=== PATIENT | female | born 1950 | race African-American/Black ===

== ENCOUNTER 2016-06-02 20:46 | Emergency (ER) | payer OTHER ==
--- NOTE | 2016-06-02 20:47 | PDOC ---
[id number] 65 year old female with no significant medical hx who is presenting to the ED with a fish bone caught in her throat. Patient reports she was eating cod when she felt a bone lodge in her throat. The patient states she' s eaten peanut butter on bread and marshmellows as an attempt to dislodge it but was unsuccessful. Patient complains of a sharp sensation that she experiences when she swallows. She is not experiencing any airway obstruction. <Abby Damon - Last Filed: 06/02/16 21:00> <Vinnie Toscano - Last Filed: 06/03/16 06:01> - General Chief Complaint: Pain, Acute Stated Complaint: FISH BONE STUCK IN THROAT Time Seen by Provider: 06/02/16 20:47 Past History <Abby Damon - Last Filed: 06/02/16 21:00> - Past Medical History Anemia: No Asthma: No Cancer: No Cardiac Disorders: No CVA: No COPD: No CHF: No Dementia: No Diabetes: No GI Disorders: No Disorders: No HTN: No Hypercholesterolemia: No Liver Disease: No Seizures: No Thyroid Disease: No - Surgical History Abdominal Surgery: Yes (COLON RESECTION FOR BLOCKAGE OVER 10 YEARS AGO) Appendectomy: No Cardiac Surgery: No Cholecystectomy: No Lung Surgery: No Neurologic Surgery: No Orthopedic Surgery: Yes (KNEE ARTHROSCOPY) - Psycho/Social/Smoking Cessation Hx Smoking History: Never smoked Have you smoked in the past 12 months: No Hx Alcohol Use: Yes (OCCASIONALLY) Substance Use Type: Alcohol Hx Substance Use Treatment: No <Vinnie Toscano - Last Filed: 06/03/16 06:01> - Past Medical History Allergies/Adverse Reactions: Allergies Allergy/AdvReac Type Severity Reaction Status Date / Time [place] And Derivatives Allergy Severe Rash Verified 06/02/16 20:47 shellfish derived Allergy Severe Swelling Verified 06/02/16 20:47 soy Allergy Severe Swelling Verified 06/02/16 20:47 Sulfa (Sulfonamide Allergy Unknown Verified 06/02/16 20:47 Antibiotics) iodine Allergy Verified 06/02/16 20:47 NASAL STEROIDS Allergy Severe SWELLING Uncoded 06/15/15 14:09 IN AFFECTED NARE Home Medications: Ambulatory Orders Alendronate Sodium/Vitamin D3 [Fosamax Plus D 70 mg-2,800 Iu Vit D] 1 tab PO Q7D 06/15/15 Citalopram Hydrobromide [Celexa -] 10 mg PO DAILY 06/15/15 Atorvastatin Ca [Lipitor] 10 mg PO 06/02/16 Review of Systems - Review of Systems Comments:: 06/02/16 21:03 CONSTITUTIONAL: Absent: fever, chills, diaphoresis, generalized weakness, malaise, loss of appetite HEENT: Present: fish bone caught in throat, sharp sensation with swallowing Absent: rhinorrhea, nasal congestion, throat swelling, mouth swelling, ear pain , eye pain, visual changes CARDIOVASCULAR: Absent: chest pain, syncope, palpitations, irregular heart rate, lightheadedness , peripheral edema RESPIRATORY: Absent: cough, shortness of breath, dyspnea with exertion, orthopnea, wheezing, stridor, hemoptysis GASTROINTESTINAL: Absent: abdominal pain, abdominal distension, nausea, vomiting, diarrhea, constipation, melena, hematochezia GENITOURINARY: Absent: dysuria, frequency, urgency, hesitancy, hematuria, flank pain, genital pain MUSCULOSKELETAL: Absent: myalgia, arthralgia, joint swelling SKIN: Absent: rash, itching, pallor HEMATOLOGIC/IMMUNOLOGIC: Absent: easy bleeding, easy bruising, lymphadenopathy, frequent infections ENDOCRINE: Absent: unexplained weight gain, unexplained weight loss, heat intolerance, cold intolerance NEUROLOGIC: Absent: headache, focal weakness or paresthesia, dizziness, unsteady gait, seizure, mental status changes, bladder or bowel incontinence. PSYCHIATRIC: Absent: anxiety, depression, suicidal or homicidal ideation, hallucinations <Marisol,Abby - Last Filed: 06/02/16 21:00> *Physical Exam - Vital Signs Last Vital Signs Temp Pulse Resp BP Pulse Ox 97.6 F 78 16 127/83 97 06/02/16 20:56 06/02/16 20:56 06/02/16 20:56 06/02/16 20:56 06/02/16 20:56 - Physical Exam Comments: 06/02/16 21:03 GENERAL: Well developed, well nourished. Awake and alert. No acute distress. HEENT: Normocephalic, atraumatic. PERRLA, EOMI. No conjunctival pallor. Sclera are non- icteric. Moist mucous membranes. Oropharynx is clear. NECK: Supple. Full ROM. No JVD. Carotid pulses 2+ and symmetric, without bruits. No thyromegaly. No lymphadenopathy. CARDIOVASCULAR: Regular rate and rhythm. No murmurs, rubs, or gallops. Distal pulses are 2+ and symmetric. PULMONARY: No evidence of respiratory distress. Lungs clear to auscultation bilaterally. No wheezing, rales or rhonchi. ABDOMINAL: Soft. Non-tender. Non-distended. No rebound or guarding. No organomegaly. Normoactive bowel sounds. MUSCULOSKELETAL: Normal range of motion at all joints. No bony deformities or tenderness. No CVA tenderness. EXTREMITIES: No cyanosis. No clubbing. No edema. No calf tenderness. SKIN: Warm and dry. Normal capillary refill. No rashes. No jaundice. NEUROLOGICAL: Alert, awake, appropriate. Cranial nerves 2-12 intact. Normal speech. Gait is normal without ataxia. PSYCHIATRIC: Cooperative. Good eye contact. Appropriate mood and affect. <Abby Damon - Last Filed: 06/02/16 21:00> Medical Decision Making - Medical Decision Making 06/03/16 06:00 fish bone cleared spontaneously prior to ct in ED> instructed to return for any neck/ pharyngeal symptoms <Vinnie Toscano - Last Filed: 06/03/16 06:01> *DC/Admit/Observation/Transfer - Attestations Scribe Attestion: 06/02/16 21:04 Documentation prepared by Abby Damon, acting as medical practice manager for Vinnie Toscano MD. <Abby Damon - Last Filed: 06/02/16 21:00> <Vinnie Toscano - Last Filed: 06/03/16 06:01> Diagnosis at time of Disposition: Foreign body - Discharge Dispostion Disposition: HOME Condition at time of disposition: Stable - Referrals Referrals: Jermaine Macdonald MD [Primary Care Provider] - - Patient Instructions Additional Instructions: Return to ED for CT scan if symptoms recur
[2016-06-02 21:02] VITALS: BP 127/83; PULSE 78; TEMP 97.6; BMI 22.6
== END 2016-06-02 22:07 | disposition home or self-care (01) ==
LOC: FER 20:46
DX: T17.228A Food in pharynx causing other injury, initial encounter (principal); X58.XXXA Exposure to other specified factors, initial encounter; Y93.89 Activity, other specified; Y92.89 Other specified places as the place of occurrence of the external cause; Y99.8 Other external cause status
CPT/HCPCS: 99281-25

== ENCOUNTER 2023-10-17 14:58 | Inpatient (IN) | payer OTHER, BC ==
[2023-10-17 15:06] VITALS: BMI 21.2
[2023-10-17 16:34] LABS: BASO % 0.3 % (0-2.0); EOS % 0.3 % (0-4.5); HEMATOCRIT 38.8 % (32.4-45.2); HEMOGLOBIN 12.9 GM/dL (10.7-15.3); LYMPH % 16.5 % (8-40); MCH 29.7 pg (25.7-33.7); MCHC 33.3 g/dl (32.0-36.0); MEAN CELL VOLUME 89.2 fl (80-96); MEAN PLT VOLUME 6.9 fl (7.5-11.1); MONO % 2.6 % (3.8-10.2); NEUT % 80.3 % (42.8-82.8); PLATELET COUNT 251 10^3/uL (134-434); RBC 4.35 M/mm3 (3.60-5.2); RDW 13.6 % (11.6-15.6); WHITE BLOOD COUNT 7.1 K/mm3 (4.0-10.0)
[2023-10-17 16:39] LABS: VENOUS BASE EXCESS -1.7 mmol/L (-2-2); VENOUS O2 SATURATION 91.9 % (70-80); VENOUS PCO2 34.8 mmHg (38-52); VENOUS PH 7.421 (7.310-7.410)
[2023-10-17 16:43] LABS: INR 0.97 (0.83-1.09)
[2023-10-17 16:55] LABS: CHLORIDE 113 mmol/L (98-107); POTASSIUM 3.3 mmol/L (3.5-5.1); SODIUM 141 mmol/L (136-145)
[2023-10-17 16:58] LABS: ALBUMIN 3.2 g/dl (3.4-5.0); ANION GAP 6 mmol/L (4-13); BLOOD UREA NITROGEN 9.9 mg/dL (7-18); CALCIUM 7.8 mg/dL (8.5-10.1); CO2 22 mmol/L (21-32); GLUCOSE,RANDOM 156 mg/dL (74-106)
[2023-10-17 17:01] LABS: CREATININE 0.7 mg/dL (0.55-1.3); SGOT/AST 18 U/L (15-37); SGPT/ALT 18 U/L (13-61)
[2023-10-17 17:03] LABS: BILIRUBIN,TOTAL 0.2 mg/dL (0.2-1); TOT PROT 6.3 g/dl (6.4-8.2)
[2023-10-17 17:04] LABS: ALK PHOS 92 U/L (45-117)
[2023-10-17 17:06] LABS: N-TERMINAL BNP 45.5 pg/ml (5-125)
[2023-10-17] MEDS ORDERED: POTASSIUM CHLORIDE ORAL LIQUID 20 MEQ/15 ML ONE (18:43)
[2023-10-17] MEDS: POTASSIUM CHLORIDE ORAL LIQUID 20 MEQ/15 ML PO ONE (18:46)
[2023-10-18] MEDS: ALBUTEROL SO4 2.5/IPRATROPIUM 0.5 INH SOL 3 ML VIAL.NEB. NEB SCH (07:47)
[2023-10-18 08:35] LABS: HEMATOCRIT 37.5 % (32.4-45.2); HEMOGLOBIN 12.4 GM/dL (10.7-15.3); MCH 29.7 pg (25.7-33.7); MEAN CELL VOLUME 90.1 fl (80-96); MEAN PLT VOLUME 7.4 fl (7.5-11.1); PLATELET COUNT 251 10^3/uL (134-434); RBC 4.16 M/mm3 (3.60-5.2); RDW 13.3 % (11.6-15.6); WHITE BLOOD COUNT 8.8 K/mm3 (4.0-10.0)
[2023-10-18 08:59] LABS: POTASSIUM 4.5 mmol/L (3.5-5.1)
[2023-10-18 09:11] LABS: ALBUMIN 3.6 g/dl (3.4-5.0)
[2023-10-18 09:12] LABS: BLOOD UREA NITROGEN 10.3 mg/dL (7-18); MAGNESIUM 2.5 mg/dL (1.8-2.4)
[2023-10-18 09:14] LABS: PHOSPHOROUS 3.2 mg/dL (2.5-4.9)
[2023-10-18 09:15] LABS: CREATININE 0.7 mg/dL (0.55-1.3)
[2023-10-18 09:16] LABS: BILIRUBIN,TOTAL 0.4 mg/dL (0.2-1); TOT PROT 7.6 g/dl (6.4-8.2)
[2023-10-18 09:20] LABS: CALCIUM 9.2 mg/dL (8.5-10.1)
[2023-10-18] MEDS: ENOXAPARIN NA (PORCINE) 40 MG/0.4 ML DISP.SYRIN SQ SCH (10:23)
[2023-10-18] MEDS: methylPREDNISolone NA SUCC 40 MG/1 ML VIAL IVPUSH SCH (10:24)
[2023-10-18] MEDS: CITALOPRAM HYDROBROMIDE 10 MG TABLET PO SCH (10:24)
[2023-10-18] MEDS: ASPIRIN COATED 81 MG TABLET.EC PO SCH (10:24)
[2023-10-18 11:33] VITALS: BP 112/72; PULSE 87; RESP 20; TEMP 97.5
[2023-10-18] MEDS: POTASSIUM CHLORIDE ORAL LIQUID 20 MEQ/15 ML PO ONE (11:36)
[2023-10-18] MEDS ORDERED: ATORVASTATIN CA 20 MG TABLET (FP) PO SCH (22:00)
== END 2023-10-18 11:00 | disposition home or self-care (01) | DRG 203 ==
LOC: JER 14:58 → JERBED 20:11 → J4W 23:25
PROVIDERS: ADMIT Internal Medicine; ATTEND Internal Medicine
DX: J45.909 Unspecified asthma, uncomplicated (principal); R06.02 Shortness of breath; E78.5 Hyperlipidemia, unspecified; I10 Essential (primary) hypertension; I25.10 Atherosclerotic heart disease of native coronary artery without angina pectoris; R09.02 Hypoxemia
CPT/HCPCS: 0241U-QW; 36415; 71046-TC-FY; 80053; 82550; 82553; 82803; 83735; 83880; 84100; 84484; 85025; 85027; 85379; 85610; 85730; 87070; 87205; 93005; 93010; 93970-TC; 94640; 99285-25